=== PATIENT | male | born 1990 | race Caucasian/White ===

== ENCOUNTER 2020-06-23 10:20 | Emergency (ER) | payer OTHER ==
--- NOTE | 2020-06-23 11:09 | EDM.PDOC ---
ED HPI GENERAL MEDICAL PROBLEM - General Chief Complaint: Lower Extremity Injury/Pain Stated Complaint: R/ LEG PAIN Time Seen by Provider: 06/23/20 10:24 Source of Information: Reports: Patient History Limitations: Reports: No Limitations - History of Present Illness INITIAL COMMENTS - FREE TEXT/NARRATIVE: Resents reporting right calf pain. States that he was walking up some stairs last evening when he felt a little pop in his right calf and since has had pain and tenderness. Pain is increased with weightbearing. right calf Pain Score (Numeric/FACES): 8 - Related Data Allergies Allergy/AdvReac Type Severity Reaction Status Date / Time No Known Allergies Allergy Verified 06/23/20 10:41 Home Meds: Home Meds Rivaroxaban [Xarelto] 15 mg PO BID 21 Days #42 tab 06/23/20 [Rx] Past Medical History - Past Health History Medical/Surgical History: Denies Medical/Surgical History - Infectious Disease History Infectious Disease History: Reports: Chicken Pox Social & Family History - Family History Family Medical History: Noncontributory Review of Systems - Review of Systems Review Of Systems: Comprehensive ROS is negative, except as noted in HPI. ED EXAM, GENERAL - Physical Exam Exam: See Below Exam Limited By: No Limitations General Appearance: Alert, No Apparent Distress Ears: Normal External Exam Nose: Normal Inspection Throat/Mouth: Normal Inspection Head: Atraumatic, Normocephalic Neck: Normal Inspection Respiratory/Chest: No Respiratory Distress, Lungs Clear, Normal Breath Sounds Cardiovascular: Normal Peripheral Pulses, Regular Rate, Rhythm, No Edema Peripheral Pulses: 3+: Radial (L), Radial (R), Posterior Tibial (L), Posterior Tibial (R) GI/Abdominal: Soft Back Exam: Normal Inspection, Full Range of Motion Extremities: Other (Tenderness right posterior calf, right lower leg and ankle larger than left, full range of motion right knee ankle and toes without hesitation or limitation, CMS to all toes intact, pedal and posttibial pulses strong. Circumference: Ankle right 10.5 inches, left 10 inches; calf right 18 inches, left 16.5 inches; subpatellar right 10.5 inches, left 10 inches) Neurological: Alert, Oriented, Normal Cognition Psychiatric: Normal Affect, Normal Mood Skin Exam: Warm, Dry, Intact, Normal Color, No Rash Lymphatic: No Adenopathy Course - Vital Signs Last Recorded V/S: Last Vital Signs Temp 36.8 C 06/23/20 13:02 Pulse 103 H 06/23/20 13:02 Resp 20 06/23/20 13:02 BP 141/83 H 06/23/20 13:02 Pulse Ox 95 06/23/20 13:02 - Orders/Labs/Meds Labs: Laboratory Tests 06/23/20 Range/Units 13:19 Sodium 136 (136-148) mmol/L Potassium 4.2 (3.5-5.1) mmol/L Chloride 101 (98-107) mmol/L Carbon Dioxide 25.8 (21.0-32.0) mmol/L BUN 12 (7.0-18.0) mg/dL Creatinine 0.8 (0.8-1.3) mg/dL Est Cr Clr Drug Dosing 143.80 mL/min Estimated GFR (MDRD) > 60.0 ml/min Glucose 99 (74-106) mg/dL Calcium 8.8 (8.5-10.1) mg/dL Total Bilirubin 0.5 (0.2-1.0) mg/dL AST 35 (15-37) IU/L ALT 100 H (14-63) IU/L Alkaline Phosphatase 92 (46-116) U/L Total Protein 7.6 (6.4-8.2) g/dL Albumin 3.7 (3.4-5.0) g/dL Globulin 3.9 (2.6-4.0) g/dL Albumin/Globulin Ratio 0.9 (0.9-1.6) Departure - Departure Time of Disposition: 14:14 Disposition: Home, Self-Care 01 Condition: Good Clinical Impression: DVT of popliteal vein Qualifiers: Chronicity: acute Laterality: right Qualified Code(s): I82.431 - Acute embolism and thrombosis of right popliteal vein - Discharge Information *PRESCRIPTION DRUG MONITORING PROGRAM REVIEWED*: Not Applicable *COPY OF PRESCRIPTION DRUG MONITORING REPORT IN PATIENT AYUSH: Not Applicable Prescriptions: Rivaroxaban [Xarelto] 15 mg PO BID 21 Days #42 tab Referrals: PCP,None [Primary Care Provider] - [facility] [Outside] Forms: ED Department Discharge Additional Instructions: The following information is given to patients seen in the emergency department who are being discharged to home. This information is to outline your options for follow-up care. We provide all patients seen in our emergency department with a follow-up referral. The need for follow-up, as well as the timing and circumstances, are variable depending upon the specifics of your emergency department visit. If you don't have a primary care physician on staff, we will provide you with a referral. We always advise you to contact your personal physician following an emergency department visit to inform them of the circumstance of the visit and for follow-up with them and/or the need for any referrals to a consulting specialist. The emergency department will also refer you to a specialist when appropriate. This referral assures that you have the opportunity for follow-up care with a specialist. All of these measure are taken in an effort to provide you with optimal care, which includes your follow-up. Under all circumstances we always encourage you to contact your private physician who remains a resource for coordinating your care. When calling for follow-up care, please make the office aware that this follow-up is from your recent emergency room visit. If for any reason you are refused follow-up, please contact the [facility] Emergency [facility] tment at and asked to speak to the emergency department charge nurse. 1. Take Xarelto twice daily for the next 21 days. Then, follow instructions from your primary care provider. Coupons provided 2. Make appointment at the above clinic within the next week. 3. Warning to return to the ER promptly: Shortness of breath, rapid heartbeat, sudden severe headaches, localized weakness, visual symptoms Sepsis Event Note (ED) - Evaluation Sepsis Screening Result: No Definite Risk - Focused Exam Vital Signs: Vital Signs Temp Pulse Resp BP Pulse Ox 06/23/20 13:02 36.8 C 103 H 20 141/83 H 95 06/23/20 12:10 36.3 C 98 20 146/93 H 96 06/23/20 10:38 36.6 C 109 H 16 153/88 H 95
--- NOTE | 2020-06-23 12:02 | CR ---
INDICATION: Right leg pain. Patient was going up stairs yesterday and her opt points. TECHNIQUE: Two views of the right fibula and tibia. FINDINGS: Moderate size calcaneal spur. Old fracture deformity involving the mid to proximal where right fibular diaphysis. Ill-defined sclerosis and lucency in a linear orientation involving the right proximal tibial meta diaphysis with moderate deformity is likely related to an old or healing fracture. No acute fracture or dislocation involving right tibia or fibula. Mild soft tissue prominence focally in the right mid to proximal calf anteriorly nonspecific. Mild degenerative arthritis right knee. Remainder negative. Dictated by Ish Valdez MD @ Jun 23 2020 11:58AM Signed by Dr. Ish Valdez @ Jun 23 2020 12:00PM
--- NOTE | 2020-06-23 13:01 | US ---
INDICATION: Right calf pain TECHNIQUE: Ultrasound venous duplex lower right extremity. Compression venous exam was performed using wood-scale, color Doppler, and spectral Doppler imaging. COMPARISON: Radiographs 06/23/2020. FINDINGS: The right popliteal and proximal-mid posterior tibial veins are noncompressible, occluded with echogenic thrombus, without evidence of internal blood flow. The distal right femoral vein is compressible but demonstrates reduced blood flow on color/spectral Doppler, possibly reflecting partial thrombosis. Remainder of the right femoral and common femoral veins are patent and fully compressible. IMPRESSION: Occlusive DVT involving the right popliteal and posterior tibial veins. Dictated by Kendall Diggs MD @ Jun 23 2020 12:50PM Signed by Dr. Kendall Diggs @ Jun 23 2020 12:58PM
[2020-06-23 13:47] LABS: BLOOD UREA NITROGEN,BUN 12 mg/dL (7.0-18.0); CARBON DIOXIDE,CO2 25.8 mmol/L (21.0-32.0); CHLORIDE,CL 101 mmol/L (98-107); GLUCOSE RANDOM 99 mg/dL (74-106); POTASSIUM,K 4.2 mmol/L (3.5-5.1); SODIUM,NA 136 mmol/L (136-148)
== END 2020-06-23 14:40 | disposition home or self-care (01) ==
LOC: MW.ED 10:20
DX: I82.431 Acute embolism and thrombosis of right popliteal vein (principal)
CPT/HCPCS: 36415; 73590-26-RT; 73590-RT; 80053; 93971-26-RT; 93971-RT; 99284; 99284-25